=== PATIENT | male | born 1960 | race Caucasian/White ===

== ENCOUNTER 2017-01-19 20:32 | Emergency (ER) | payer BC ==
[~2017-01-19 20:32] MED LIST: Aspirin 81 MG Tab.Chew ONE; Nitroglycerin 0.4 MG Tab.SL ONE
[2017-01-19] MEDS ORDERED: Nitroglycerin 0.4 MG Tab.SL SL ONE (20:35)
[2017-01-19] MEDS ORDERED: Aspirin 81 MG Tab.Chew PO ONE (20:35)
--- NOTE | 2017-01-19 20:46 | EDM.PDOC ---
[id number] 4d CHEST PAINS Time Seen by Provider: 01/19/17 20:32 Source of Information: Reports: Patient History Limitations: Reports: No Limitations - History of Present Illness INITIAL COMMENTS - FREE TEXT/NARRATIVE: 56-year-old male presenting with chest pain for the past 45 minutes. He has no prior cardiac history. He was mildly active, folding clothes and walking around his house when he developed diaphoresis followed by a sharp stabbing central chest pain that radiated into both shoulders and his posterior neck. He had no shortness of breath but mild nausea. No previous episode of pain similar. On arrival he was still having significant chest discomfort and diaphoresis. An EKG done on arrival was normal. Onset: Sudden Duration: Hour(s): (Less than one hour) Location: Reports: Neck, Chest, Other (Bilateral shoulders) Severity: Moderate Worsens with: Reports: None Associated Symptoms: Reports: Chest Pain, Diaphoresis, Malaise. Denies: Fever/ Chills, Headaches, Shortness of Breath Chest Pain Score (Numeric/FACES): 5 - Related Data Allergies Allergy/AdvReac Type Severity Reaction Status Date / Time adalimumab [From Humira] Allergy Other Verified 06/24/16 06:47 benzoic acid Allergy Other Verified 06/24/16 06:47 coconut oil Allergy Other Verified 06/24/16 06:47 gadodiamide Allergy Other Verified 06/24/16 06:47 Iodinated Contrast Media - Allergy Other Verified 01/20/17 12:02 Oral and Home Meds: Home Meds Hydrocortisone [Cortef] 10 mg PO DAILY 06/23/16 [History] Naproxen Sodium [Aleve] 220 mg PO DAILY PRN 06/23/16 [History] Omeprazole Magnesium [Prilosec Otc] 20 mg PO ACBREAKFAST PRN 06/23/16 [History] Triamcinolone Acetonide [Kenalog 0.1% Crm] 1 applic TOP BID 06/23/16 [History] Multivit-Min/FA/Lycopene/Lut [Centrum Silver Ultra Men's] 1 tab PO DAILY [History] Testosterone Cypionate 100 mg IM WEEKLY 06/24/16 [History] Past Medical History HEENT History: Reports: Impaired Vision Respiratory History: Reports: Sleep Apnea Gastrointestinal History: Reports: Colon Polyp, GERD, Hemorrhoids, Hiatal Hernia , Other (See Below) Other Gastrointestinal History: umbilical hernia Musculoskeletal History: Reports: Neck Pain, Chronic, Osteoarthritis Endocrine/Metabolic History: Reports: Obesity/BMI 30+, Other (See Below) Other Endocrine/Metabolic History: Adrenal insufficient Dermatologic History: Reports: Eczema - Infectious Disease History Infectious Disease History: Reports: Measles - Past Surgical History HEENT Surgical History: Reports: None Respiratory Surgical History: Reports: None GI Surgical History: Reports: Appendectomy, Colonoscopy, EGD Endocrine Surgical History: Reports: None Musculoskeletal Surgical History: Reports: None Dermatological Surgical History: Reports: None Social & Family History - Tobacco Use Smoking Status *Q: Never Smoker Years of Tobacco use: 20 Packs/Tins Daily: 2.5 Second Hand Smoke Exposure: No - Caffeine Use Caffeine Use: Reports: Soda - Alcohol Use Days Per Week of Alcohol Use: 0 - Recreational Drug Use Recreational Drug Use: No ED ROS GENERAL - Review of Systems Review Of Systems: See Below HEENT: Reports: No Symptoms Respiratory: Denies: Shortness of Breath Cardiovascular: Denies: Lightheadedness, Syncope GI/Abdominal: Reports: Nausea. Denies: Abdominal Pain, Vomiting Musculoskeletal: Reports: Neck Pain, Shoulder Pain Skin: Reports: Diaphoresis Neurological: Denies: Dizziness, Headache Psychiatric: Reports: No Symptoms ED EXAM, GENERAL - Physical Exam Exam: See Below Exam Limited By: No Limitations General Appearance: Alert, Anxious, Mild Distress Eye Exam: Bilateral Eye: Normal Inspection Neck: Normal Inspection Respiratory/Chest: No Respiratory Distress, Lungs Clear, Chest Non-Tender Cardiovascular: Regular Rate, Rhythm GI/Abdominal: Soft, Non-Tender Extremities: Normal Inspection. No: Pedal Edema Neurological: Alert, Oriented, No Motor/Sensory Deficits Psychiatric: Anxious Skin Exam: Warm, Diaphoretic EKG INTERPRETATION Rhythm: NSR Course - Vital Signs Last Recorded V/S: Last Vital Signs Temp 97.9 F 01/19/17 20:41 Pulse 80 01/20/17 01:36 Resp 16 01/20/17 01:00 BP 124/78 01/20/17 01:36 Pulse Ox 92 L 01/20/17 01:00 - Orders/Labs/Meds Orders: Active Orders 24 hr Category Date Time Status EKG Documentation Completion [RC] ASDIRECTED Care 01/19/17 20:35 Active EKG 12 Lead [EK] Routine Ther 01/19/17 20:35 Ordered Labs: Laboratory Tests 01/19/17 01/19/17 01/19/17 Range/Units 20:44 20:44 21:51 WBC 9.6 (4.5-11.0) K/uL RBC 5.12 (4.30-5.90) M/uL Hgb 16.5 H (12.0-15.0) g/dL Hct 45.9 (40.0-54.0) % MCV 90 (80-98) fL MCH 32 H (27-31) pg MCHC 36 (32-36) % Plt Count 233 (150-400) K/uL Neut % (Auto) 56 (36-66) % Lymph % (Auto) 29 (24-44) % [place] % (Auto) 10 H (2-6) % Eos % (Auto) 5 H (2-4) % Baso % (Auto) 1 (0-1) % D-Dimer, Quantitative < 100 (0.0-400.0) ng/mL Sodium 142 (140-148) mmol/L Potassium 3.8 (3.6-5.2) mmol/L Chloride 106 (100-108) mmol/L Carbon Dioxide 23 (21-32) mmol/L Anion Gap 12.6 (5.0-14.0) mmol/L BUN 13 (7-18) mg/dL Creatinine 0.9 (0.8-1.3) mg/dL Est Cr Clr Drug Dosing 101.79 mL/min Estimated GFR (MDRD) > 60 (>60) Glucose 159 H (74-106) mg/dL Calcium TNP Total Bilirubin 0.8 (0.2-1.0) mg/dL AST TNP ALT TNP Alkaline Phosphatase TNP Troponin I 0.018 (0.000-0.056) ng/mL Total Protein 6.7 (6.4-8.2) g/dL Albumin 3.4 (3.4-5.0) g/dL Globulin 3.3 (2.3-3.5) g/dL Albumin/Globulin Ratio 1.0 L (1.2-2.2) 01/19/17 Range/Units 23:46 WBC (4.5-11.0) K/uL RBC (4.30-5.90) M/uL Hgb (12.0-15.0) g/dL Hct (40.0-54.0) % MCV (80-98) fL MCH (27-31) pg MCHC (32-36) % Plt Count (150-400) K/uL Neut % (Auto) (36-66) % Lymph % (Auto) (24-44) % [place] % (Auto) (2-6) % Eos % (Auto) (2-4) % Baso % (Auto) (0-1) % D-Dimer, Quantitative (0.0-400.0) ng/mL Sodium (140-148) mmol/L Potassium (3.6-5.2) mmol/L Chloride (100-108) mmol/L Carbon Dioxide (21-32) mmol/L Anion Gap (5.0-14.0) mmol/L BUN (7-18) mg/dL Creatinine (0.8-1.3) mg/dL Est Cr Clr Drug Dosing mL/min Estimated GFR (MDRD) (>60) Glucose (74-106) mg/dL Calcium Total Bilirubin (0.2-1.0) mg/dL AST ALT Alkaline Phosphatase Troponin I 14.522 H* (0.000-0.056) ng/mL Total Protein (6.4-8.2) g/dL Albumin (3.4-5.0) g/dL Globulin (2.3-3.5) g/dL Albumin/Globulin Ratio (1.2-2.2) Meds: Medications Discontinued Medications Generic Name Dose Route Start Last Admin Trade Name Satnamq PRN Reason Stop Dose Admin Aspirin 324 mg 01/19/17 20:35 01/19/17 20:35 Aspirin PO 01/19/17 20:36 324 mg ONETIME ONE Administration Aspirin Confirm 01/19/17 20:27 Aspirin Administered 01/19/17 20:28 Dose 324 mg .ROUTE .STK-MED ONE Atorvastatin Calcium 80 mg 01/20/17 01:25 01/20/17 01:36 Lipitor PO 01/20/17 01:26 80 mg ONETIME ONE Administration Heparin Sodium (Porcine) 5,000 units 01/20/17 01:28 01/20/17 01:35 Heparin Sodium IVPUSH 01/20/17 01:29 5,000 units ONETIME ONE Administration Hydromorphone HCl 0.5 mg 01/19/17 21:00 01/19/17 21:03 Dilaudid IVPUSH 01/19/17 21:01 0.5 mg ONETIME ONE Administration Heparin Sodium/Dextrose 25,000 units in 500 mls @ 26.127 mls/hr 01/20/17 02: 00 01/20/17 01:52 Heparin 25,000 Units In D5w 500 Ml IV 12 units/kg/hr TITRATE ADRIEL 26.127 mls/hr Protocol Administration 12 UNITS/KG/HR Metoprolol Tartrate 25 mg 01/20/17 01:28 01/20/17 01:36 Lopressor PO 01/20/17 01:29 25 mg ONETIME ONE Administration Nitroglycerin 0.4 mg 01/19/17 20:35 01/19/17 20:47 Nitrostat SL 01/19/17 20:36 0.4 mg ONETIME ONE Administration Nitroglycerin Confirm 01/19/17 20:32 Nitrostat Administered 01/19/17 20:33 Dose 0.4 mg .ROUTE .[facility] ONE - Re-Assessments/Exams Free Text/Narrative Re-Assessment/Exam: 01/19/17 20:45 324 mg of chewable aspirin was given. This was followed by a 0.4 mg sublingual nitroglycerin which had no effect on the pain. He did start to relax. Portable chest x-ray, CBC, CMP and troponin were obtained. 01/20/17 00:46 Chest x-ray showed no acute findings, CBC was normal, CMP unremarkable other than very lipemic. Troponin was 0. Patient was observed for 6 hours and a troponin repeated. His pain slowly resolved completely. 01/20/17 02:13 Repeat troponin was 15. Although his pain had basically resolved the lab was convinced that despite the very lipemic blood the troponin likely was elevated. This was discussed with the hospitalist service and [facility], a heparin drip was started, the patient was given 80 mg of atorvastatin and 25 mg metoprolol. He was transferred for inpatient admission and cardiology evaluation. Departure - Departure Time of Disposition: 02:25 Disposition: DC/Tfer to Other Condition: fair Clinical Impression: Acute coronary syndrome - Discharge Information Referrals: PCP,None [Primary Care Provider] - Forms: ED Department Discharge Care Plan Goals: Patient will be transferred to [facility] for cardiology evaluation and treatment - My Orders Last 24 Hours: My Active Orders 01/19/17 20:35 EKG Documentation Completion [RC] ASDIRECTED EKG 12 Lead [EK] Routine - Assessment/Plan Last 24 Hours: My Active Orders 01/19/17 20:35 EKG Documentation Completion [RC] ASDIRECTED EKG 12 Lead [EK] Routine
[2017-01-19] MEDS ORDERED: HYDROmorphone 0.5 MG/0.5 ML Syringe IVPUSH ONE (21:00)
[2017-01-20] MEDS ORDERED: atorvaSTATin 20 MG Tab PO ONE (01:25)
[2017-01-20] MEDS ORDERED: Metoprolol Tartrate 25 MG Tab PO ONE (01:28)
[2017-01-20] MEDS ORDERED: Heparin Sodium 5,000 Units/ML Vial IVPUSH ONE (01:28)
[2017-01-20] MEDS ORDERED: Heparin Sodium/D5W 25,000 UNITS/500 ML BAG IV SCH ×2 (01:30→02:00)
[2017-01-20 01:38] VITALS: BP 124/78
--- NOTE | 2017-01-20 08:27 | CR ---
Chest 1V Frontal HISTORY: chest pain FINDINGS: Portable chest, 2043 hours. No prior chest films are present for comparison There are mild linear interstitial changes left lung base which could are present atelectasis, infiltrate, or scarring. Remainder of the chest is clear. Cardiomediastinal silhouette is within normal limits. No vascular redistribution or pleural fluid i s seen. Bony structures are unremarkable. IMPRESSION: Mild nonspecific linear interstitial changes left lung base could represent atelectasis, scarring, or early infiltrate. No other acute chest abnormality is identified.
== END 2017-01-20 02:24 | disposition other institution (70) ==
LOC: JP.ED 20:32
DX: I24.9 Acute ischemic heart disease, unspecified (principal); K21.9 Gastro-esophageal reflux disease without esophagitis; M19.90 Unspecified osteoarthritis, unspecified site; E66.9 Obesity, unspecified; Z68.30 Body mass index [BMI] 30.0-30.9, adult; Z88.8 Allergy status to other drugs, medicaments and biological substances; Z79.899 Other long term (current) drug therapy; Z90.49 Acquired absence of other specified parts of digestive tract
CPT/HCPCS: 36415; 71010; 80053; 84484; 85025; 85379; 93005; 96365; 96375; 96376; 99285; A9270; J1170; J1644

== ENCOUNTER 2017-03-09 19:04 | Emergency (ER) | payer BC ==
[2017-03-09 19:27] VITALS: BP 132/79
--- NOTE | 2017-03-09 20:01 | EDM.PDOC ---
[id number] IN EYE NOT AN ACCIDENT Time Seen by Provider: 03/09/17 19:25 Source of Information: Reports: Patient History Limitations: Reports: No Limitations - History of Present Illness INITIAL COMMENTS - FREE TEXT/NARRATIVE: 56-year-old male with left eye vision changes for the past hour. It started off as black lines, which then broke up into black dots like a "sand storm". He also felt like he was looking at water that someone was pouring ink into the water with swirls, and looking through "wax paper". He has no pain. His vision with glasses was checked and he is still at 20/30 of the left eye, 20/40 on the right. He recently had four-vessel bypass surgery. He has had no recent trauma. Onset: Sudden Duration: Hour(s): (Within the last 1-2 hours) Severity: Moderate Associated Symptoms: Reports: No Other Symptoms denies pain Pain Score (Numeric/FACES): 0 - Related Data Allergies Allergy/AdvReac Type Severity Reaction Status Date / Time adalimumab [From Humira] Allergy Other Verified 06/24/16 06:47 benzoic acid Allergy Other Verified 06/24/16 06:47 coconut oil Allergy Other Verified 06/24/16 06:47 gadodiamide Allergy Other Verified 06/24/16 06:47 Iodinated Contrast- Oral and Allergy Other Verified 01/20/17 12:02 IV Dye [Iodinated Contrast Media - Oral and] Home Meds: Home Meds Hydrocortisone [Cortef] 10 mg PO DAILY 06/23/16 [History] Naproxen Sodium [Aleve] 220 mg PO DAILY PRN 06/23/16 [History] Omeprazole Magnesium [Prilosec Otc] 20 mg PO ACBREAKFAST PRN 06/23/16 [History] Triamcinolone Acetonide [Kenalog 0.1% Crm] 1 applic TOP BID 06/23/16 [History] Multivit-Min/FA/Lycopene/Lut [Centrum Silver Ultra Men's] 1 tab PO DAILY [History] Testosterone Cypionate 100 mg IM WEEKLY 06/24/16 [History] Past Medical History HEENT History: Reports: Impaired Vision Respiratory History: Reports: Sleep Apnea Gastrointestinal History: Reports: Colon Polyp, GERD, Hemorrhoids, Hiatal Hernia , Other (See Below) Other Gastrointestinal History: umbilical hernia Musculoskeletal History: Reports: Neck Pain, Chronic, Osteoarthritis Endocrine/Metabolic History: Reports: Obesity/BMI 30+, Other (See Below) Other Endocrine/Metabolic History: Adrenal insufficient Dermatologic History: Reports: Eczema - Infectious Disease History Infectious Disease History: Reports: Chicken Pox - Past Surgical History HEENT Surgical History: Reports: None Cardiovascular Surgical History: Reports: Coronary Artery Bypass Respiratory Surgical History: Reports: None GI Surgical History: Reports: Appendectomy, Colonoscopy, EGD Endocrine Surgical History: Reports: None Musculoskeletal Surgical History: Reports: None Dermatological Surgical History: Reports: None Social & Family History - Tobacco Use Smoking Status *Q: Never Smoker Years of Tobacco use: 20 Packs/Tins Daily: 2.5 Second Hand Smoke Exposure: No - Caffeine Use Caffeine Use: Reports: None - Alcohol Use Days Per Week of Alcohol Use: 0 - Recreational Drug Use Recreational Drug Use: No ED ROS GENERAL - Review of Systems Review Of Systems: See Below Constitutional: Denies: Fever, Chills Respiratory: Denies: Shortness of Breath Cardiovascular: Denies: Chest Pain GI/Abdominal: Denies: Abdominal Pain, Nausea, Vomiting Skin: Reports: No Symptoms Neurological: Reports: No Symptoms. Denies: Headache ED EXAM GENERAL W FULL EYE - Physical Exam Exam: See Below Exam Limited By: No Limitations General Appearance: Alert, No Apparent Distress Eye Exam: Bilateral Eye: EOMI, PERRL Visual Acuity (R) 20/: 30 Visual Acuity (L) 20/: 40 Eyelids: Bilateral: Normal Appearance Extraocular Movements: Bilateral: Intact Pupillary Size: Left: 3 mm Pupillary Reaction: Bilateral: Brisk Respiratory/Chest: No Respiratory Distress, Lungs Clear Course - Vital Signs Last Recorded V/S: Last Vital Signs Temp 99.5 F 03/09/17 19:25 Pulse 99 03/09/17 19:25 Resp 12 03/09/17 19:25 BP 132/79 03/09/17 19:25 Pulse Ox 96 03/09/17 19:25 - Re-Assessments/Exams Free Text/Narrative Re-Assessment/Exam: 03/09/17 20:10 Symptoms were discussed with optometry medication nurse in [facility], and an exam was set up for 8 AM tomorrow morning. Patient was comfortable with that plan. Departure - Departure Time of Disposition: 20:13 Disposition: Home, Self-Care 01 Condition: Good Clinical Impression: Changes in vision - Discharge Information Instructions: Blurred Vision Referrals: PCP,None [Primary Care Provider] - Forms: ED Department Discharge Care Plan Goals: Recheck your vision with optometry tomorrow morning at 8 AM in [place] as discussed.
== END 2017-03-09 20:14 | disposition home or self-care (01) ==
LOC: JP.ED 19:04
DX: H57.8 Other specified disorders of eye and adnexa (principal); M19.90 Unspecified osteoarthritis, unspecified site; K21.9 Gastro-esophageal reflux disease without esophagitis; E66.9 Obesity, unspecified; E27.40 Unspecified adrenocortical insufficiency; Z88.8 Allergy status to other drugs, medicaments and biological substances; Z91.041 Radiographic dye allergy status
CPT/HCPCS: 99284

== ENCOUNTER 2019-06-10 06:13 | Day surgery (SDC) | payer MEDICAID ==
[2019-06-10] MEDS ORDERED: Sodium Chloride 0.9% 1,000 ML IV SCH (07:00)
[2019-06-10] MEDS ORDERED: fentaNYL 100 MCG/2 ML SDV ONE (07:15)
[2019-06-10] MEDS ORDERED: Midazolam 1 MG/ML 2 ML SDV ONE (07:15)
[2019-06-10] MEDS ORDERED: Propofol 200 MG/20 ML SDV ONE ×3 (07:15→08:13)
[2019-06-10 09:44] VITALS: BP 109/69; PULSE 73
--- NOTE | 2019-06-10 11:45 | OR ---
DATE OF PROCEDURE: 06/10/2019 SURGEON: Leonardo Diallo MD PROCEDURE: Colonoscopy. FINDINGS: 1. Descending colon polyp, approximately 1 cm, completely removed using snare. 2. Diverticulosis, mild. COMPLICATIONS: None. WASH DRILLER: None. ANESTHESIA: MAC. PREOPERATIVE DIAGNOSIS: History of colon polyps. POSTOPERATIVE DIAGNOSIS: History of colon polyps. RISKS: Risks, benefits, alternatives, and limitations including, but not limited to infection, bleeding, and perforation were explained to the patient who wished to proceed. PROCEDURE IN DETAIL: The patient was placed in left lateral decubitus position. Digital rectal exam was performed without abnormality. The scope was introduced atraumatically to the ileocecal valve. The patient had a very tortuous colon requiring multiple patient positioning; however, during this process, no undue pressure nor was the scope ever blindly advanced. The scope was brought back through the ascending, transverse, descending colon, and retroflexed. The aforementioned polyp was identified and completely removed. No abnormalities on retroflexion. The patient also had diverticulosis that would be described as mild throughout the colon, but concentrated in a classic pattern of sigmoid colon. No diverticulitis, colitis, old or new blood. The patient tolerated the procedure well. Leonardo Diallo MD /[id number]
== END 2019-06-10 09:40 | disposition home or self-care (01) ==
LOC: JP.SDS 06:13
PROVIDERS: ATTEND Surgery
DX: Z12.11 Encounter for screening for malignant neoplasm of colon (principal); K63.5 Polyp of colon; K57.30 Diverticulosis of large intestine without perforation or abscess without bleeding; K63.89 Other specified diseases of intestine; I10 Essential (primary) hypertension; E23.0 Hypopituitarism; K21.9 Gastro-esophageal reflux disease without esophagitis; G47.33 Obstructive sleep apnea (adult) (pediatric); Z95.1 Presence of aortocoronary bypass graft; Z86.010 Personal history of colon polyps
CPT/HCPCS: 45385; J2250; J2704; J3010; J7030; 88305